=== PATIENT | female | born 1965 | race Caucasian/White ===

== ENCOUNTER 2017-07-24 18:52 | Emergency (ER) | payer MEDICAID ==
[2014-08-22 06:22] VITALS: BMI 34.4
[~2017-07-24 18:52] MED LIST: ASPIRIN EC81 MG PO; GABAPENTIN100 MG; ISORDIL5 MG PO
== END 2017-07-24 20:35 | disposition home or self-care (01) ==
LOC: D.ER 18:52
DX: S93.402A Sprain of unspecified ligament of left ankle, initial encounter (principal); X58.XXXA Exposure to other specified factors, initial encounter; Y93.89 Activity, other specified; Y92.89 Other specified places as the place of occurrence of the external cause; S83.92XA Sprain of unspecified site of left knee, initial encounter; F17.200 Nicotine dependence, unspecified, uncomplicated

== ENCOUNTER 2020-01-19 12:24 | Inpatient (IN) | payer MEDICAID ==
[~2020-01-19] VITALS: Ht 154.9 cm; Wt 77.6 kg
[2020-01-19] VITALS (12 sets, daily range): BP systolic 93–142; BP diastolic 58–85; BMI 31.2
[2020-01-19] MEDS ORDERED: ASPIRIN81 MG PO (13:06)
[2020-01-19] MEDS ORDERED: ACEROLA C500 MG PO (13:06)
[2020-01-19] MEDS ORDERED: ACIDOPHILUS-PE1 EACH PO (13:06)
[2020-01-19] MEDS ORDERED: ACEROLA C500 MG (13:06)
[2020-01-19] MEDS ORDERED: BENTYL10 MG PO (13:07)
[2020-01-19] MEDS ORDERED: FLORINEF 0.1 M0.1 MG PO (13:07)
[2020-01-19] MEDS ORDERED: VALIUM5 MG PO (13:07)
[2020-01-19] MEDS ORDERED: MULTI-DAY VITAM1 TAB PO (13:08)
[2020-01-19] MEDS ORDERED: METAMUCIL PACKE1 PKT PO (13:08)
[2020-01-19] MEDS ORDERED: NOVOLOG100 UNIT/1 SC (13:09)
[2020-01-19] MEDS ORDERED: PROTONIX40 MG PO (13:10)
[2020-01-19] MEDS ORDERED: PERCOCET 7.5/321 TAB PO (13:12)
[2020-01-19] MEDS ORDERED: ULTRAM50 MG PO (13:12)
[2020-01-19] MEDS ORDERED: PHENAZOPYRIDIN100 MG PO (13:12)
[2020-01-19] MEDS ORDERED: ZINC-220220 MG PO (13:13)
[2020-01-19] MEDS ORDERED: ZOFRAN4 MG PO (13:13)
[2020-01-19 13:18] LABS: BASOPHILS 0.3 % (0-2); EOSINOPHILS 7.1 % (0-7); HEMATOCRIT 35.4 % (36.0-48.0); IMMATURE GRANULOCYTES 0.3 % (0-5); LYMPHOCYTES 30.7 % (15-50); MCH 28.9 pg (26.0-34.0); MCHC 31.1 g/dL (31.0-37.0); MCV 93.2 fL (80.0-100.0); MEAN PLATELET VOLUME 10.2 fL (7.4-10.4); MONOCYTES 7.3 % (2-11); NEUTROPHILS 54.3 % (40-80); RDW 17.5 % (11.5-14.5); WBC 10.3 10x3/uL (4.8-10.8)
[2020-01-19 13:23] LABS: PLATELET COUNT 361 10x3/uL (130-400)
[2020-01-19 13:38] LABS: APTT 24.7 SECONDS (22.8-39.4); INR 1.04 (0.85-1.17); PROTIME 13.5 SECONDS (11.6-15.0)
[2020-01-19 13:42] LABS: CALC OSMOLALITY 270 mosm/kg (275-300); CALCIUM 9.3 mg/dL (8.5-10.1); CHLORIDE - SERUM 101 mmol/L (98-107); CREATININE - SERUM 0.9 mg/dL (0.6-1.3); GLUCOSE 137 mg/dL (74-106); POTASSIUM - SERUM 4.3 mmol/L (3.5-5.1); SODIUM 133 mmol/L (136-145); UREA NITROGEN 20 mg/dL (7-18); eGFR NON AFRICAN AMERICAN 69 mL/min (90-120)
[2020-01-19 13:58] LABS: ALBUMIN 2.4 g/dL (3.4-5.0); ALKALINE PHOSPHATASE 143 U/L (30-120); ALT (SGPT) 53 U/L (10-68); BILIRUBIN - TOTAL 0.12 mg/dL (0.2-1.3); CKMB 0.7 U/L (0.0-3.6); CREATINE KINASE 19 UL (21-215); PROTEIN - SERUM 6.7 g/dL (6.4-8.2); TROPONIN-I < 0.017 ng/mL (0.000-0.060)
--- NOTE | 2020-01-19 14:00 | NUR ---
GUAIC STOOL NEGATIVE: HARESH MARTINEZ NOTIFIED
--- NOTE | 2020-01-19 14:08 | NUR ---
CRITICAL LAB LACTIC ACID 2.2. NOTIFIED
--- NOTE | 2020-01-19 14:25 | NUR ---
TO CT VIA STRETCHER WITH ARMY MANAGER
[2020-01-19 15:32] LABS: BILIRUBIN NEGATIVE (NEGATIVE); GLUCOSE NEGATIVE (NEGATIVE); KETONE NEGATIVE (NEGATIVE); NITRITE NEGATIVE (NEGATIVE); UROBILINOGEN NORMAL (NORMAL)
[2020-01-19 15:36] LABS: BACTERIA FEW /hpf (NEGATIVE); EPITHELIAL CELLS 0-5 /hpf (0-5); RED CELLS - URINE 0-5 /hpf (0-5)
--- NOTE | 2020-01-19 16:00 | NUR ---
#1 WOUND: SACRUM= 5X2 #2 WOUND: SACRUM= 5X2 #3 WOUND ABOVE UMBILICUS= 4X0.5 #4 WOUND BELOW UMBILICUS= 1X1 #5 WOUND STERNUM= 11 X 1.5 CM ALL WOUNDS CLEANSED WITH WOUND CLEANSER AND DRY DRSGS APPLIED. PT CHELSI WELL
--- NOTE | 2020-01-19 16:30 | NUR ---
VANCOMYCIN 1 GM COMPLETED ON 01/19/20 @ 2961
--- NOTE | 2020-01-19 17:10 | NUR ---
REPRT TO [facility]
--- NOTE | 2020-01-19 17:30 | NUR ---
TO ICU VIA STRETCHER WITH ISO PRECAUTIONS IN PLACE, CONDITION STBLE
--- NOTE | 2020-01-19 18:06 | NUR ---
REC'D PT TO ICU ISILATION ROOM AND PLACED ON AIRBORNE PRECAUTIONS/COVID-19. ALL MONITORING EQUIPMENT ATTACHED AND ALARMS SET. DINNER TRAY PROVIDED. VSS, AFEBRILE. PT IS EATING DINNER TRAY. SHE STATES "AM VERY HUNGRY".
--- NOTE | 2020-01-19 19:00 | NUR ---
REPORT RECEIVED. INITIAL ASSESSMENT COMPLETE. ZHANNA GERMAIN ALSO HERE TO ASSESS PT. PT UNDER AIRBORN ISOLATION FOR SUSPECTED [place] TROY VIRUS. PT ALERT ORIENTED ON ROOM AIR CHEST CLEAR O2 SAT 94-97%. PT HAS DRESSING TO COCCYX STAGE IV DRESSING CDI. PT TURNS INDEPENDENTLY AND ABLE TO PULL SELF UP IN BED. ENCOURAGED TO TCDB AND REPOSITION OFTEN. PT STATES MORPHINE THAT WAS GIVEN THIS PER DAY SHIFT HELPING. SEE ASSESSMENT FLOWSHEET FOR FULL DETAILS.
--- NOTE | 2020-01-19 21:00 | NUR ---
ANSWERED PTS CALL LIGHT SHE IS REQUESTING PAIN MED INFORMED TOO EARLY REPOSITIONED AND ASSISTED WITH CLEANING ILEOSTOMY SITE.
--- NOTE | 2020-01-19 23:00 | NUR ---
REASSESSMENT SEE FLOWSHEETS VSS WILL CONTINUE TO MONITOR
[2020-01-20] VITALS (21 sets, daily range): BP systolic 89–132; BP diastolic 51–81; Ht 154.9 cm; Wt 77.6 kg
--- NOTE | 2020-01-20 00:50 | NUR ---
PT MEDICATED PER PRN MAR FOR PAIN AT ILEOSTOMY SITE EXCORIATION. SEE EMAR. ASSISTED PT WITH CLEANING ILEOSTOMY SITE
--- NOTE | 2020-01-20 03:00 | NUR ---
REASSESSMENT COMPLETE. PT ASSISTED WITH BED TRAVIS TO URINATE CLEAR YELLOW URINE DRESSING CHANGED TO COCCYX WITH WET TO DRY GAUZE. CL IN REACH VSS WILL CONTINUE TO MONITOR.
[2020-01-20 04:26] LABS: % SATURATION 21 % (15-55); IRON 32 ug/dl (35-150); TOTAL IRON BIND CAPACITY 152 ug/dl (260-445); UNSAT IRON BIND CAPACITY 120 ug/dl (150-375)
[2020-01-20 05:00] LABS: ALKALINE PHOSPHATASE 99 U/L (30-120); BILIRUBIN - TOTAL 0.12 mg/dL (0.2-1.3); CALCIUM 7.8 mg/dL (8.5-10.1); CARBON DIOXIDE 20.9 mmol/L (21.0-32.0); CHLORIDE - SERUM 107 mmol/L (98-107); CREATININE - SERUM 0.8 mg/dL (0.6-1.3); FERRITIN 291 ng/mL (3-244); GLUCOSE 90 mg/dL (74-106); PHOSPHOROUS 3.8 mg/dL (2.5-4.9); PROTEIN - SERUM 5.5 g/dL (6.4-8.2); SODIUM 137 mmol/L (136-145); eGFR NON AFRICAN AMERICAN 79 mL/min (90-120)
[2020-01-20 05:01] LABS: ALBUMIN 1.7 g/dL (3.4-5.0); ALT (SGPT) 27 U/L (10-68); CALC OSMOLALITY 274 mosm/kg (275-300); POTASSIUM - SERUM 3.6 mmol/L (3.5-5.1); UREA NITROGEN 14 mg/dL (7-18)
[2020-01-20 06:09] LABS: BASOPHILS 0.3 % (0-2); EOSINOPHILS 7.7 % (0-7); IMMATURE GRANULOCYTES 0.1 % (0-5); LYMPHOCYTES 35.5 % (15-50); MCH 28.9 pg (26.0-34.0); MCV 93.2 fL (80.0-100.0); MONOCYTES 9.8 % (2-11); NEUTROPHILS 46.6 % (40-80); RBC 3.11 10x6/uL (4.00-5.40); RDW 17.7 % (11.5-14.5)
[2020-01-20 06:31] LABS: PLATELET COUNT 283 10x3/uL (130-400)
--- NOTE | 2020-01-20 06:31 | NUR ---
LAB REDREW CBC SPECIMEN WAS CLOTTED. REORDERED AM DRAW TO VERIFY RESULTS
--- NOTE | 2020-01-20 06:56 | NUR ---
PT C/O PAIN EXCORIATION AROUND ILEOSTOMY MEDICATED PER PRN ORDERS SEE EMAR
[2020-01-20 07:13] LABS: ALBUMIN 1.8 g/dL (3.4-5.0); ALKALINE PHOSPHATASE 93 U/L (30-120); CALC OSMOLALITY 277 mosm/kg (275-300); CALCIUM 8.1 mg/dL (8.5-10.1); CARBON DIOXIDE 22.1 mmol/L (21.0-32.0); CHLORIDE - SERUM 108 mmol/L (98-107); CREATININE - SERUM 0.8 mg/dL (0.6-1.3); GLUCOSE 90 mg/dL (74-106); MAGNESIUM - SERUM 1.1 mg/dL (1.8-2.4); POTASSIUM - SERUM 3.7 mmol/L (3.5-5.1); PROTEIN - SERUM 5.1 g/dL (6.4-8.2); SODIUM 139 mmol/L (136-145); UREA NITROGEN 13 mg/dL (7-18); eGFR NON AFRICAN AMERICAN 79 mL/min (90-120)
[2020-01-20 07:17] LABS: ALT (SGPT) 34 U/L (10-68); BILIRUBIN - TOTAL 0.09 mg/dL (0.2-1.3)
--- NOTE | 2020-01-20 10:22 | NUR ---
BREAKFAST TRAY PROVIDED AND PT FEEDS SELF WITH OUT DIFFICULTY. ASSISTED WITH BED TRAVIS AND PT VOIDS CL YELLOW URINE. BANDAGE TO STAGE 4 COCCYX CHANGED. DSNG TO ABD CHANGED. EXCORATION TO SURROUNDING STOMA APPLIED BEAUDREAUS PASTE ORDERED. EXCORATION APPEARS SLIGHTLY LESS TODAY.
--- NOTE | 2020-01-20 19:13 | NUR ---
RECEIVING REPORT REVIEWING ORDERS CT OF CHEST WITHOUT CONTRAST ORDERED PER DR LOPES AT 1230 NOT COMPLETED. CALLED RADIOLOGY THEY ARE AWARE OF ORDER AND THAT PT IS UNDER AIRBORN ISOLATION FOR SUSPECTED TROY VIRUS. RADIOLOGY TO CALL WHEN THEY ARE READY FOR PATIENT. INQUIRED FROM DAY AND COUTURE DRESSMAKER CHARGE NURSES TO PROCEDURE FOR TRANSPORTING TO RADIOLOGY WITH THE TROY VIRUS.
--- NOTE | 2020-01-20 19:35 | NUR ---
REPORT RECEIVED. ANSWERED CALL LIGHT PT CRYING STATING ABD HURTING AROUND ILEOSTOMY SKIN EXCORIATED ALL AROUND STOMA. "SOME DR WAS SUPPOSED TO COME THIS MORNING AND PUT A TUBE IN TO KEEP FROM HAVING TO KEEP WIPING FROM POOP BUT I HAVE NOT SEEN HIM AND NOBODY HAS TOLD BE WHEN HE IS COMING" "MARC BEEN HURTING MOST OF DAY AT 10 ON 1-10 SCALE STATES "MY BUTT IS KILLING ME IM SUPPOSED TO BE GETTING AN AIR MATTRESS ASKING WHEN MATTRESS WILL BE HERE PT STATES "I CANT HANDLE ANYMORE". INFORMED PT THE OVERLAY MATTRESS WAS HERE WOULD GET PLACED SOON ABLE. PT HAS CT CHEST ORDERED THAT HAS NOT BEEN DONE YET CHECKING WITH INFECTION CONTROL ON POLICY WITH TRANSPORTING SINCE PT SUSPECTED TROY VIRUS. WOULD BE EASIER ON PT TO APPLY OVERLAY WHILE PT IN CT PT VERBALIZES UNDERSTANDING. MEDICATED WITH MORPHINE PER PRN EMAR. INITIAL ASSESSMENT COMPLETE SEE FLOWSHEET. CM READING SR WITHOUT ECTOPY ALARMS ON AND AUDIBLE. RESP EVEN NONLABORED ON ROOM AIR WITH O2 SAT 94-96%. PT DENIES SOB ENCOUARAGED PT TO TCDB. PT MOVES INDEPENDENTLY TURNS AND REPOSITIONS AND ABLE TO MOVE SELF UP IN BED WITHOUT ASSIST JUST REMINDED TO KEEP PRESSURE OFF COCCYX SHE VERBALIZES UNDERSTANDING. BED LOW POSITION CL IN REACH WILL SEE EMAR FOR PAIN REASSESSMENT.
--- NOTE | 2020-01-20 19:50 | NUR ---
MARIUSZ CHARGE NURSE SPOKE TO [facility] INFECTION CONTROL NURSE ABOUT TRANSPORT FOR TROY/ISOLATION PATIENTS. INFORMED TO PLACE REGULAR SURGICAL MASK ON PT AND ISOLATION GOWN, CLEAR HALLWAYS DIRECT STAFF TO DON AIRBORNE PPE. .
--- NOTE | 2020-01-20 21:30 | NUR ---
CHARGE NURSE SPOKE WITH DR LOPES FOR ORDERS FOR STERNAL WOUND DRESSING. ORDER WAS PLACED TODAY FOR WOUND CARE CONSULT AND WOUND VAC PLACEMENT TO STERNUM. URI BALDERAS WOUND CARE NURSE TO SEE PT WEDNESDAY AND INITIATE THE STERNAL WOUND VAC. DR LOPES STATED HE WAS AWARE THAT WOUND CONSULT AND VAC PLACEMENT WOULD BE DONE WEDNESDAY HAD GIVEN ORDER FOR DRY DRESSING TO BE CHANGED BID UNTIL WOUND VAC PLACED BY WOUND CARE NURSE.
--- NOTE | 2020-01-20 22:00 | NUR ---
CULTURE SWABS OF STERNUM SENT TO LAB PER ORDERED BY MARIANNE. STERNAL WOUND BED PINK CLEAN WITH MINIMAL SEROSANGUINOUS DRAINAGE NO ODOR OR REDNESS NOTED. [id number] APPROXIMATE DEPTH 0.3 CM. STERILE DRESSING CHANGE CLEANED WITH NS COVERED WITH DRY GAUZE AND SECURED WITH MEPORE TAPE. PT TOLERATED WELL
--- NOTE | 2020-01-20 22:15 | NUR ---
PT UP TO W/C WITH ASSIST MASK AND GOWN TO CT. FIRST STEP OVERLAY PLACED ON BED WHILE PT IN CT
--- NOTE | 2020-01-20 22:30 | NUR ---
PT BACK FROM CT ASSISTED TO BED WITH FIRST STEP OVERLAY TOLERATED CT WELL
[2020-01-21] VITALS (24 sets, daily range): BP systolic 94–150; BP diastolic 46–100
--- NOTE | 2020-01-21 01:30 | NUR ---
ANSWERED PTS CALL LIGHT ASSISTED TO BED TRAVIS SHE ALSO ASKED IF SHE COULD HAVE PAIN MEDICATION YET. INFORMED WOULD CHECK
--- NOTE | 2020-01-21 02:00 | NUR ---
ANSWERED PTS CALL LIGHT RIGHT WRIST 22 GUAGE PAINFUL D/C CATH INTACT 20 GUAGE PIV RESTARTED TO RIGHT FOREARM PLACED.
--- NOTE | 2020-01-21 03:00 | NUR ---
REASSESSMENT VSS CPOC PT DENIES NEEDS AT THIS TIME. STATES THE AIR MATTRESS HAS HELPED WITH THE PAIN FROM PRESSURE WOUND
--- NOTE | 2020-01-21 04:00 | NUR ---
A BEATRIZ CHARGE NURSE ANSWERED PT CALL LIGHT ASSISTED PT WITH CLEANING LARGE LIQUID BROWN STOOL FROM ILEOSTOMY PT ALSO REQUESTING BED TRAVIS MODERATE AMOUNT OF CLEAR YELLOW URINE.
--- NOTE | 2020-01-21 04:48 | NUR ---
LAST MAG REPLACEMENT OF ELECTROLYTE PROTOCOL GIVEN. PER PROTOCOL REDRAW 4 HOURS. DUE TO PT BEING A STICK REQUESTED AM LABS BE DRAWN AT 0800 JOAN IN LAB NOTIFIED
--- NOTE | 2020-01-21 05:32 | NUR ---
UNABLE TO DRAW FROM TRIALYSIS INFORMED LAB PT WOULD NEED TO BE A STICK
[2020-01-21 09:02] LABS: BASOPHILS 0.3 % (0-2); EOSINOPHILS 7.6 % (0-7); HEMOGLOBIN 9.4 g/dL (12-16); IMMATURE GRANULOCYTES 0.3 % (0-5); MCH 29.2 pg (26.0-34.0); MCHC 31.3 g/dL (31.0-37.0); MCV 93.2 fL (80.0-100.0); MEAN PLATELET VOLUME 10.2 fL (7.4-10.4); MONOCYTES 9.6 % (2-11); NEUTROPHILS 46.2 % (40-80); PLATELET COUNT 294 10x3/uL (130-400); RBC 3.22 10x6/uL (4.00-5.40); RDW 17.6 % (11.5-14.5); WBC 6.7 10x3/uL (4.8-10.8)
[2020-01-21 09:22] LABS: ALBUMIN 1.8 g/dL (3.4-5.0); ANION GAP 13.7 mmol/L (8-16); BILIRUBIN - TOTAL 0.23 mg/dL (0.2-1.3); CALCIUM 8.3 mg/dL (8.5-10.1); CARBON DIOXIDE 22.5 mmol/L (21.0-32.0); PHOSPHOROUS 3.8 mg/dL (2.5-4.9); POTASSIUM - SERUM 3.2 mmol/L (3.5-5.1); PROTEIN - SERUM 5.8 g/dL (6.4-8.2)
[2020-01-21 09:23] LABS: CREATININE - SERUM 1.1 mg/dL (0.6-1.3)
--- NOTE | 2020-01-21 10:52 | NUR ---
SKIN SURROUNDING STOMA EXCORIATED. CLEANED AND DRESSED X3 THIS AM. PT C/O PAIN TO SKIN. MS GIVEN WITH ADEQUATE RELIEF.
--- NOTE | 2020-01-21 19:04 | NUR ---
DR NORTH PLACED A TUBE INTO THE STOMA AND PLACED TO GRAVITY DRAINAGE.
[2020-01-21 19:34] LABS: POTASSIUM - SERUM 3.3 mmol/L (3.5-5.1)
--- NOTE | 2020-01-21 19:50 | NUR ---
LAB HERE FOR MAG AND POTASSIUM RECHECK PER ELECTROLYTE PROTOCOL. WHILE THIS NURSE AND LAB IN ROOM COWORKER TOOK CALL FROM LAB REPORTING MAG LEVEL OF 1.0. ASKED HOW LAB HAD BEEN RESULTED WHEN SHE HAD NOT DRAWN YET GIFT OFFICER STATED SHE WOULD CHECK WHEN SHE GOT BACK TO LAB.
--- NOTE | 2020-01-21 23:15 | NUR ---
ANSWERED PTS CALL LIGHT SHE IS CRYING VERY TEARFUL BECAUSE THE TUBE DR NORTH HAD PUT IN ILEOSTOMY HAD COME OUT. ASSISTED PT WITH GETTING SITE CLEANED DRESSED AND COVERED WITH GAUZE AND ABD PADS AND INFORMED PT NOT TO KEEP WIPING WITH GAUZE WHICH KEEPS AREA IRRITATED. ILEOSTOMY WITH CONSTANT LIQUID BROWN STOOL INFORMED DUE TO THE SITE BEING ILEOSTOMY AND WITH THE EXCORIATED SKIN AROUND CONSTANTLY TRYING TO WIPE IS CAUSING MORE IRRITATION. APPLIED JOAN BUTT PASTE TO SKIN AROUND STOMA. AND COVERED INFORMED WILL MONITOR IT AND CLEAN DRESS NEEDED. PT ALSO IN PAIN 10 ON 1-10 SCALE MEDICATED WITH MORPHINE PER ORDERS. WILL CONTINUE TO MONITOR
[2020-01-22] VITALS (25 sets, daily range): BP systolic 74–138; BP diastolic 44–85
--- NOTE | 2020-01-22 00:15 | NUR ---
WENT TO LAB SPOKE WITH RAOUL UNABLE TO SEE MAG AND POT RESULTS FROM 1999. SHE LOOKED ON LAB SIDE OF COMPUTER AND STATED THE RESULT WHICH HAD BEEN CALLED AT 1938 TO ICU AND REPORTED BUT THE DISTRICT GAUGER HAD NOT EVEN DRAWN THE BLOOD YET AND WAS ACTUALLY IN ROOM FOR DRAW. SHE STATED SHE DID NOT KNOW THIS WAS DONE BEFORE HER SHIFT INFORMED HAD TO BE REDRAWN SINCE NOT CLEAR WHAT HAD HAPPENED.
--- NOTE | 2020-01-22 00:40 | NUR ---
ANSWERED PTS CALL LIGHT SHE STATES THE ILEOSTOMY SITE IS LEAKING. SHE CAN FEEL IT LEAKING ALL DOWN HER BACK. INFORMED THAT DRESSING WAS CLEAN NO STOOL NOTED AND REITERATED THAT ONLY IRRITATING MAKING WORSE BY CONTINUING TO CONSTANTLY WIPE.
--- NOTE | 2020-01-22 01:12 | NUR ---
AVTAR FROM LAB HERE ON UNIT ASKED IF SHE WAS HERE TO DRAW THIS PT LAB SHE WAS NOT BUT DID DRAW SINCE UNABLE TO VERIFY RESULTS
[2020-01-22 01:46] LABS: POTASSIUM - SERUM 3.6 mmol/L (3.5-5.1)
--- NOTE | 2020-01-22 02:00 | NUR ---
MAG REPORTING 1.0 FOLLOWING ELECTROLYTE PROTOCOL PT CONTINUES TO BE TEARFUL MEDICATED WITH VALIUM PER PRN ORDER FOR ANXIETY WILL MONITOR VSS CPOC
--- NOTE | 2020-01-22 03:00 | NUR ---
REASSESSMENT COMPLETE NO CHANGES CPOC
[2020-01-22 04:14] LABS: BASOPHILS 0.1 % (0-2); EOSINOPHILS 7.9 % (0-7); HEMATOCRIT 28.7 % (36.0-48.0); IMMATURE GRANULOCYTES 0.4 % (0-5); LYMPHOCYTES 37.9 % (15-50); MCH 29.2 pg (26.0-34.0); MCHC 31.4 g/dL (31.0-37.0); MCV 93.2 fL (80.0-100.0); MEAN PLATELET VOLUME 10.3 fL (7.4-10.4); MONOCYTES 9.4 % (2-11); NEUTROPHILS 44.3 % (40-80); PLATELET COUNT 245 10x3/uL (130-400); RBC 3.08 10x6/uL (4.00-5.40); RDW 17.6 % (11.5-14.5); WBC 6.8 10x3/uL (4.8-10.8)
[2020-01-22 04:34] LABS: ALBUMIN 1.6 g/dL (3.4-5.0); ANION GAP 8.6 mmol/L (8-16); BILIRUBIN - TOTAL 0.2 mg/dL (0.2-1.3); CALCIUM 7.7 mg/dL (8.5-10.1); CREATININE - SERUM 0.9 mg/dL (0.6-1.3); POTASSIUM - SERUM 3.6 mmol/L (3.5-5.1); PROTEIN - SERUM 5.1 g/dL (6.4-8.2)
[2020-01-22 04:35] LABS: MAGNESIUM - SERUM 0.9 mg/dL (1.8-2.4); PHOSPHOROUS 2.6 mg/dL (2.5-4.9)
--- NOTE | 2020-01-22 06:00 | NUR ---
CLEANED ILEOSTOMY SITE MODERATE AMOUNT OF STOOL. APPLIED JOAN BUTT PASTE TO EXCORIATION REAPPLIED GAUZE AND ABD PADS SECURED WITH TAPE. PT STATED AFTER THE ANXIETY MEDICATION SHE WAS ABLE TO REST AND FEELS BETTER.
--- NOTE | 2020-01-22 07:00 | NUR ---
PT REPORT RECEIVED FROM GRANULATING BLENDER NURSE. PT IN AIRBORN ISOLATION. WILL CONTINUE TO MONITOR
--- NOTE | 2020-01-22 11:06 | NUR ---
Nutrition follow-up: Pt in isolation for possible Covid-19 exposure; testing in progress Diet: ADA consistent CHO PO Intake 100% of lasst 3 meals Pt refusing nutritional supplements at this time Labs reviewed Recommend Alex nutritional supplement, 1 pkt, BID mixed in juice to aid with wound healing. RDN following.
--- NOTE | 2020-01-22 11:52 | NUR ---
PT ADMITTED ON 01/19/20 FROM [place]. IT IS NOTED THAT SHE HAD NUMEROUS OPEN WOUNDS UPON ADMISSION. MIDLINE STERNUM HAS A NONHEALING SURGICAL WOUND. IT MEASURES 11CM X 2CM X 0.3CM. WOUND BED IS RED. THERE IS A BLOODY DRAINAGE WITH NO ODOR. A WOUND VAC DRESSING WAS APPLIED USING 1 BLACK SPONGE. SETTINGS ARE AT -125MMHG LOW CONTINUOUS. PERIUMBILICAL HAS 2 OPEN WOUNDS: #1 MEASURES 1CM X 1CM #2 3CM X 1CM BOTH WOUNDS WERE CLEANSED WITH WOUND VACUUM FRAME OPERATOR AND COVERED WTIH GAUZE. PT HAS AN ILEOSTOMY RIGHT LOWER ABD QUAD. THE SURROUNDING SKIN IS RED, RAW AND IRRITATED. PT STATES SHE CANNOT USE STOMA POWDER OR PASTE, SO ZINC OXIDE PASTE IS BEING APPLIED. PT STATES SHE CANNOT USE AN OSTOMY APPLIANCE DUE TO EXCORIATED SKIN. AREA WAS CLEANSED, DRIED, COVERED WITH ADAPTIC, 4X4S AND ABD PADS. SACRUM: 4CM X 4CM X 0.5CM HEALING STAGE 3 PRESSURE INJURY. WOUND BED IS RED. LEFT BUTTOCK: 3CM X 3CM X 1.5CM X 1.5CM FROM 12 TO 12 OCLOCK STAGE 3 PRESSURE INJURY. BOTH OF THESE WOUNDS WERE CLEANSED AND LOOSELY PACKED WITH GAUZE MOISTENED WITH SALINE. COVERED WITH DRY 4X4S AND ABD PADS. WOUND CARE WILL CONTINUE MONITORING.
[2020-01-23] VITALS (20 sets, daily range): BP systolic 90–135; BP diastolic 52–72
[2020-01-23 05:16] LABS: BASOPHILS 0.3 % (0-2); EOSINOPHILS 6.8 % (0-7); HEMATOCRIT 28.4 % (36.0-48.0); HEMOGLOBIN 8.6 g/dL (12-16); IMMATURE GRANULOCYTES 0.3 % (0-5); LYMPHOCYTES 33.3 % (15-50); MCH 28.8 pg (26.0-34.0); MCHC 30.3 g/dL (31.0-37.0); MEAN PLATELET VOLUME 10.4 fL (7.4-10.4); MONOCYTES 7.7 % (2-11); NEUTROPHILS 51.6 % (40-80); PLATELET COUNT 287 10x3/uL (130-400); RBC 2.99 10x6/uL (4.00-5.40); RDW 17.8 % (11.5-14.5); WBC 7.2 10x3/uL (4.8-10.8)
[2020-01-23 06:28] LABS: ALBUMIN 1.6 g/dL (3.4-5.0); ALKALINE PHOSPHATASE 98 U/L (30-120); ALT (SGPT) 32 U/L (10-68); BILIRUBIN - TOTAL 0.14 mg/dL (0.2-1.3); CALC OSMOLALITY 279 mosm/kg (275-300); CALCIUM 7.8 mg/dL (8.5-10.1); CARBON DIOXIDE 26.6 mmol/L (21.0-32.0); CHLORIDE - SERUM 109 mmol/L (98-107); CREATININE - SERUM 0.7 mg/dL (0.6-1.3); GLUCOSE 106 mg/dL (74-106); MAGNESIUM - SERUM 1.8 mg/dL (1.8-2.4); PHOSPHOROUS 2.1 mg/dL (2.5-4.9); POTASSIUM - SERUM 3.7 mmol/L (3.5-5.1); PROTEIN - SERUM 5.2 g/dL (6.4-8.2); SODIUM 141 mmol/L (136-145); UREA NITROGEN 9 mg/dL (7-18); eGFR NON AFRICAN AMERICAN > 90 mL/min (90-120)
--- NOTE | 2020-01-23 07:00 | NUR ---
PT RESTING IN BED. NO ACUTE SIGNS OF DISTRESS. SHIFT ASSESSMENT COMPLETED. WILL CONTINUE TO MONITOR
--- NOTE | 2020-01-23 10:40 | NUR ---
DR TOVAR IN ROOM. UPDATE GIVEN. WANTS TO PERFORM COVID 19 TEST. WILL CONTINUE TO MONITOR
--- NOTE | 2020-01-23 12:00 | NUR ---
DR GUY NIEVES. TRANSFER ORDER RECEIVED. PT WILL BE TRANSFERRING TO [facility].
--- NOTE | 2020-01-23 14:35 | NUR ---
COVID 19 TEST PERFORMED ON PT. SWABBED NOSE. SAMPLE TAKEN TO LAB.
--- NOTE | 2020-01-23 18:24 | NUR ---
CALLED REPORT TO MED TWO. REPORT GIVEN TO
--- NOTE | 2020-01-23 18:30 | NUR ---
TRIED CALLING REPORT TO MED 2. LEFT ON HOLD. HUNG UP WILL TRY AGAIN
--- NOTE | 2020-01-23 20:54 | MORECARE ---
CASE MANAGEMENT DISCHARGE SUMMARY PATIENT: BERNICE GUNN UNIT: [id number] ADM DATE: 01/19/20 AGE: 55 : 67 SEX: F ROOM/BED: D.2134 AUTHOR: DIANA KOO PHYSICIAN: REFERRING PHYSICIAN: LEONA ZHU MD DATE OF SERVICE: 01/23/20 Discharge Plan Patient Name: BERNICE GUNN [facility] [facility] 1965 Planned Disposition: Nursing Facility RAGHAV Cert Anticipated Discharge Date: Discharge Date: Expected LOS: Initial Reviewer: [email or web address] Initial Review Date: 01/19/2020 Generated: 01/23/20 9:53 pm Patient Name: BERNICE GUNN Page [phone] at 2053 All edits/amendments must be made on the electronic document DICTATION DATE: 01/23/202052 SENIOR SAS PROGRAMMER: EMMA 01/23/202052 RPT#: [id number] DC DATE: STATUS: ADM IN [facility] [address] [place] [address] END OF REPORT
--- NOTE | 2020-01-23 21:00 | MORECARE ---
CASE MANAGEMENT DISCHARGE SUMMARY PATIENT: BERNICE GUNN UNIT: [id number] ADM DATE: 01/19/20 AGE: 55 : 67 SEX: F ROOM/BED: D.2134 AUTHOR: DIANA KOO PHYSICIAN: REFERRING PHYSICIAN: LEONA ZHU MD DATE OF SERVICE: 01/23/20 Discharge Plan Patient Name: BERNICE GUNN [facility] [facility] 1965 Planned Disposition: Nursing Facility RAGHAV Cert Anticipated Discharge Date: Discharge Date: Expected LOS: Initial Reviewer: [email or web address] Initial Review Date: 01/19/2020 Generated: 01/23/20 10:00 pm DCPIA - Discharge Planning Initial Assessment Updated by [email or web address]: Joann Arora on 01/23/20 8:58 pm * Is the patient Alert and Oriented? Yes * PCP Jerome * Preadmission Environment [facility] * Facility Name [facility] * ADLs Partial Dependent * Partial ADLs (Assistance needed) Ambulation Bathing Dressing Eating Medication Management Toileting Transfers * List name and contact numbers for known caregivers / representatives who currently or will assist patient after discharge: [facility]UEL CORBIN - [facility] - [phone] * Verbal permission to speak to the caregivers and representatives has been obtained from the patient. N/A * Additional services required to return to the preadmission environment? No * Can the patient safely return to the preadmission environment? Yes * Has this patient been hospitalized within the prior 30 days at any hospital? No Last DP export: 01/23/20 7:54 p Patient Name: BERNICE GUNN Page [id number] at 2100 All edits/amendments must be made on the electronic document DICTATION DATE: 01/23/202099 VOLUNTEER SERVICES DIRECTOR: EMMA 01/23/202099 RPT#: [id number] DC DATE: STATUS: ADM IN [facility] [address] [place] [address] END OF REPORT
--- NOTE | 2020-01-23 21:07 | MORECARE ---
CASE MANAGEMENT DISCHARGE SUMMARY PATIENT: BERNICE GUNN UNIT: [id number] ADM DATE: 01/19/20 AGE: 55 : 67 SEX: F ROOM/BED: D.9644 AUTHOR: HAYES,DOC PHYSICIAN: REFERRING PHYSICIAN: LEONA ZHU MD DATE OF SERVICE: 01/23/20 Discharge Plan Patient Name: BERNICE GUNN Facility: [facility]:[place] : 1965 Planned Disposition: Nursing Facility RAGHAV Cert Anticipated Discharge Date: Discharge Date: Expected LOS: Initial Reviewer: [email or web address] Initial Review Date: 01/19/2020 Generated: 01/23/20 10:06 pm Comments DCP- Discharge Planning Updated by [email or web address]: Joann Arora on 01/23/20 8:[address] Patient Name: BERNICE GUNN Admission Status: ER Accout number: [id number] Admission Date: 01-19-2020 : 1965 Admission Diagnosis: Attending: LEONA ZHU Current LOS: 4 Anticipated DC Date: Planned Disposition: Nursing Facility RAGHAV Cert Primary Insurance: MEDICAID [place] Discharge Planning Comments: Patient is a current resident at [facility] [phone] after a long hospitalization post AMI. CM called and spoke with Mila at [facility] ([place], [place]) and they are planning on patient returning there upon discharge. CM will fax updates to [facility] ([place], [place]) closer to discharge. CM will continue to follow and assist as needed with discharge planning / needs. Cake Winder: Joann Arora DCPIA - Discharge Planning Initial Assessment Updated by [email or web address]: Joann Arora on 01/23/20 8:58 pm * Is the patient Alert and Oriented? Yes * PCP Jerome * Preadmission Environment [facility] * Facility Name [facility] * ADLs Partial Dependent * Partial ADLs (Assistance needed) Ambulation Bathing Dressing Eating Medication Management Toileting Transfers * List name and contact numbers for known caregivers / representatives who currently or will assist patient after discharge: MANUEL CORBIN - [facility] - [phone] * Verbal permission to speak to the caregivers and representatives has been obtained from the patient. N/A * Additional services required to return to the preadmission environment? No * Can the patient safely return to the preadmission environment? Yes * Has this patient been hospitalized within the prior 30 days at any hospital? No Last DP export: 01/23/20 8:00 p Patient Name: BERNICE GUNN Page 56599 at 2107 All edits/amendments must be made on the electronic document DICTATION DATE: 01/23/202105 CUTTER GAS: EMMA 01/23/202105 RPT#: [id number] DC DATE: STATUS: ADM IN [facility] [address] [place] [address] END OF REPORT
--- NOTE | 2020-01-23 21:19 | MORECARE ---
CASE MANAGEMENT DISCHARGE SUMMARY PATIENT: BERNICE GUNN UNIT: [id number] ADM DATE: 01/19/20 AGE: 55 : 67 SEX: F ROOM/BED: D.6604 AUTHOR: HAYES,DOC PHYSICIAN: REFERRING PHYSICIAN: LEONA ZHU MD DATE OF SERVICE: 01/23/20 Discharge Plan Patient Name: BERNICE GUNN Facility: [facility]:[place] : 1965 Planned Disposition: Nursing Facility RAGHAV Cert Anticipated Discharge Date: Discharge Date: Expected LOS: Initial Reviewer: [email or web address] Initial Review Date: 01/19/2020 Generated: 01/23/20 10:19 pm Comments DCP- Discharge Planning Updated by [email or web address]: Joann Arora on 01/23/20 8:[address] Patient Name: BERNICE GUNN Admission Status: ER Accout number: [id number] Admission Date: 01-19-2020 : 1965 Admission Diagnosis: Attending: LEONA ZHU Current LOS: 4 Anticipated DC Date: Planned Disposition: Nursing Facility RAGHAV Cert Primary Insurance: MEDICAID [place] Discharge Planning Comments: Patient is a current resident at [facility] [phone] after a long hospitalization post AMI. CM called and spoke with Mila at [facility] and they are planning on patient returning there upon discharge. CM will fax updates to [facility] closer to discharge. CM will continue to follow and assist as needed with discharge planning / needs. Director Call Center Sales: Joann Arora DCPIA - Discharge Planning Initial Assessment Updated by [email or web address]: Joann Arora on 01/23/20 8:58 pm * Is the patient Alert and Oriented? Yes * PCP Jerome * Pread[facility] Environment [facility] * Facility Name [facility] * ADLs Partial Dependent * Partial ADLs (Assistance needed) Ambulation Bathing Dressing Eating Medication Management Toileting Transfers * List name and contact numbers for known caregivers / representatives who currently or will assist patient after discharge: [facility]EL CORBIN - [facility] - [phone] * Verbal permission to speak to the caregivers and representatives has been obtained from the patient. N/A * Additional services required to return to the preadmission environment? No * Can the patient safely return to the preadmission environment? Yes * Has this patient been hospitalized within the prior 30 days at any hospital? No External Providers External Provider: [facility] Next Contact Date: Service Request Date: Service Type: Resolution: Reviewer: Comments: Last DP export: 01/23/20 8:07 p Patient Name: BERNICE GUNN Page [phone] at 211 All edits/amendments must be made on the electronic document DICTATION DATE: 01/23/202118 FIXED INCOME DIRECTOR: EMMA 01/23/202118 RPT#: [id number] DC DATE: STATUS: ADM IN [facility] [address] [place] [address] END OF REPORT
--- NOTE | 2020-01-23 23:18 | NUR ---
PAGED ZHANNA GERMAIN, INSURANCE APPLICATION INVESTIGATOR DUE TO PT PAIN LEVEL.
[2020-01-24 00:30] VITALS: BP 117/75
--- NOTE | 2020-01-24 04:24 | NUR ---
RECEIVED REPORT FROM OFFGOING NURSE. CALLED TO ROOM BY PT ASKING FOR OSTOMY DSG TO BE CHANGED. STATING THAT IT WAS STINGING. DSG CHANGE AND AREA SURROUNDING WOUND BRIGHT RED AND APPEARS TO HAVE SMALL RAISED AREAS IN IT. RED AREA COVERED WITH BUTT PASTE TO HELP PROTECT SKIN. DENIES ANY OTHER NEEDS.
[2020-01-24 06:15] LABS: BASOPHILS 0.3 % (0-2); EOSINOPHILS 10.7 % (0-7); HEMATOCRIT 30.5 % (36.0-48.0); HEMOGLOBIN 9.2 g/dL (12-16); IMMATURE GRANULOCYTES 0.3 % (0-5); LYMPHOCYTES 35.3 % (15-50); MCH 28.9 pg (26.0-34.0); MCHC 30.2 g/dL (31.0-37.0); MCV 95.9 fL (80.0-100.0); MEAN PLATELET VOLUME 10.3 fL (7.4-10.4); MONOCYTES 8.4 % (2-11); PLATELET COUNT 308 10x3/uL (130-400); RBC 3.18 10x6/uL (4.00-5.40); RDW 17.5 % (11.5-14.5); WBC 7.3 10x3/uL (4.8-10.8)
[2020-01-24 06:44] LABS: ALBUMIN 1.6 g/dL (3.4-5.0); ALKALINE PHOSPHATASE 106 U/L (30-120); ALT (SGPT) 34 U/L (10-68); BILIRUBIN - TOTAL 0.22 mg/dL (0.2-1.3); CALC OSMOLALITY 277 mosm/kg (275-300); CARBON DIOXIDE 27.3 mmol/L (21.0-32.0); CHLORIDE - SERUM 107 mmol/L (98-107); CREATININE - SERUM 0.6 mg/dL (0.6-1.3); GLUCOSE 90 mg/dL (74-106); MAGNESIUM - SERUM 1.6 mg/dL (1.8-2.4); PHOSPHOROUS 2.3 mg/dL (2.5-4.9); POTASSIUM - SERUM 3.3 mmol/L (3.5-5.1); PROTEIN - SERUM 5.5 g/dL (6.4-8.2); SODIUM 140 mmol/L (136-145); UREA NITROGEN 10 mg/dL (7-18); eGFR NON AFRICAN AMERICAN > 90 mL/min (90-120)
--- NOTE | 2020-01-24 12:49 | NUR ---
CHANGED PT'S DRESSINGS TO COCCYX AND ABD PER ORDERS. SKIN IS REDDENED AND IRRITATED AROUND STOMY SITE. PT EXPRESSES DISCOMFORT IN AREA. PT A/O X4. NO S/S OF DISTRESS. VSS. BED LOW CALL LIGHT WITHIN REACH. WILL CONTINUE TO MONITOR.
--- NOTE | 2020-01-24 15:30 | NUR ---
CHANGED PT'S ABD PADDING BANDAGE. CLEANED STOOL FROM WOUND AND REDRESSED. C/D/I. PT COMPLAINS OF SKIN BURNING AROUND STOMA SITE. AREA CLEANED . A/O X4. VSS. BED LOW CALL LIGHT WITHIN REACH. WILL CONTINUE TO MONITOR.
[2020-01-24] MEDS ORDERED: SMZ-TMP DS 800-1 TAB PO (15:42)
--- NOTE | 2020-01-24 15:45 | NUR ---
WOUND VAC DRESSING CHANGE DATE: 01/24/2020 WOUND LOCATION: midline sternum WOUND MEASUREMENTS: 10cm x 1.4cm x 0.1cm (improved) WOUND DESCRIPTION: red/beefy MUSCLE, TENDON, OR BONE EXPOSED? no DRAINAGE AMOUNT/DESCRIPTION: no ODOR? no TYPE OF SPONGE USED AND AMOUNT: black SETTINGS: -125mmhg low continuous TEACHING: home/nh dressing changes Pt tolerated well
--- NOTE | 2020-01-24 16:11 | MORECARE ---
CASE MANAGEMENT DISCHARGE SUMMARY PATIENT: BERNICE GUNN UNIT: [id number] ADM DATE: 01/19/20 AGE: 55 : 67 SEX: F ROOM/BED: D.1034 AUTHOR: HAYES,DOC PHYSICIAN: REFERRING PHYSICIAN: LEONA ZHU MD DATE OF SERVICE: 01/24/20 Discharge Plan Patient Name: BERNICE GUNN Facility: [facility]:[place] : 1965 Planned Disposition: Nursing Facility [facility] Cert Anticipated Discharge Date: 01/24/20 Discharge Date: Expected LOS: 5 Initial Reviewer: [id number] Initial Review Date: 01/19/2020 Generated: 01/24/20 5:11 pm Comments DCP- Discharge Planning Updated by [id number]: Joann Arora on 01/23/20 8:[address] Patient Name: BERNICE GUNN Admission Status: ER Accout number: [id number] Admission Date: 01-19-2020 : 1965 Admission Diagnosis: Attending: LEONA ZHU Current LOS: 4 Anticipated DC Date: Planned Disposition: Nursing Facility [facility] Cert Primary Insurance: [place]ID [place] Discharge Planning Comments: Patient is a current resident at [facility] [phone] after a long hospitalization post AMI. CM called and spoke with Mila at [facility] and they are planning on patient returning there upon discharge. CM will fax updates to [facility] closer to discharge. CM will continue to follow and assist as needed with discharge planning / needs. Wheel Inspector: Joann Arora DCPIA - Discharge Planning Initial Assessment Updated by [email or web address]: Joann Arora on 01/23/20 8:58 pm * Is the patient Alert and Oriented? 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 N/A * Additional services required to return to the preadmission environment? No * Can the patient safely return to the preadmission environment? Yes * Has this patient been hospitalized within the prior 30 days at any hospital? No Last DP export: 01/23/20 8:19 p Patient Name: BERNICE GUNN Page 19421 at 1611 All edits/amendments must be made on the electronic document DICTATION DATE: 01/24/20 161 BUCKLE SEWER MACHINE: DM 01/24/20 161 RPT#: [id number] DC DATE: STATUS: ADM IN [facility] [address] [place] [address] END OF REPORT
--- NOTE | 2020-01-24 16:15 | NUR ---
I have reviewed this patient and I concur with the Shift Assessment completed by the Licensed Practical Nurse today this shift.
--- NOTE | 2020-01-24 16:58 | MORECARE ---
CASE MANAGEMENT DISCHARGE SUMMARY PATIENT: BERNICE GUNN UNIT: [id number] ADM DATE: 01/19/20 AGE: 55 : 67 SEX: F ROOM/BED: D.1104 AUTHOR: HAYES,DOC PHYSICIAN: REFERRING PHYSICIAN: LEONA ZHU MD DATE OF SERVICE: 01/24/20 Discharge Plan Patient Name: BERNICE GUNN Facility: [facility]:[place] : 1965 Planned Disposition: Nursing Facility [facility] Cert Anticipated Discharge Date: 01/24/20 Discharge Date: Expected LOS: 5 Initial Reviewer: [id number] Initial Review Date: 01/19/2020 Generated: 01/24/20 5:57 pm Comments DCP- Discharge Planning Updated by [email or web address]: Landon Faye on 01/24/20 3:[address] Patient Name: BERNICE GUNN Encounter No: [id number] : 1965 Primary Insurance: MEDICAID [place] Anticipated DC Date: 01-24-2020 Planned Disposition: Nursing Facility [facility] Cert External Planned Provider: [facility] C[facility] MEDICAID BED DCP follow-up note: RECEIVED DISCHARGE ORDERS, CALLED [facility], , SPOKE TO LINEMARKER TAMIKO. THE PERSON THAT CM SPOKE TO YESTERDAY IS NOT IN, THEY CANNOT LOCATE THE UPDATE FAXED BY YESTERDAY. [facility] IS NOT ABLE TO OBTAIN WOUND VAC TODAY AND IT WILL BE TOMORROW BEFORE VAC IS RECEIVED. FAXED UPDATE AND DISCHARGE INFORMATION TO [facility] AT [phone]. CM WAITING ON [facility] TO OBTAIN WOUND VAC. WHEN [facility] VERIFIES THEY HAVE THE VAC AND WILL ACCEPT PT, NURSE REPORT TO BE CALLED TO [facility] AT [phone]. PT WILL TRANSPORT VIA AMBULANCE. PENELOPE Carmichael DCP- Discharge Planning Updated by [email or web address]: Joann Arora on 01/23/20 8:[address] Patient Name: BERNICE GUNN Admission Status: ER Accout number: [id number] Admission Date: 01-19-2020 : 1965 Admission Diagnosis: Attending: LEONA ZHU Current LOS: 4 Anticipated DC Date: Planned Disposition: [facility] Primary Insurance: MED[place]ID [place] Discharge Planning Comments: Patient is a current resident at [facility] [phone] after a long hospitalization post AMI. CM called and spoke with Mila at [facility] and they are planning on patient returning there upon discharge. CM will fax updates to [facility] closer to discharge. CM will continue to follow and assist as needed with discharge planning / needs. Splicer Helper: Joann Arora DCPIA - Discharge Planning Initial Assessment Updated by [email or web address]: Joann Arora on 01/23/20 8:58 pm * Is the patient Alert and Oriented? Yes * PCP Jerome * Preadmission Environment Custodial [facility] * [facility] * ADLs Partial Dependent * Partial ADLs (Assistance needed) Ambulation Bathing Dressing Eating Medication Management Toileting Transfers * List name and contact numbers for known caregivers / representatives who currently or will assist patient after discharge: MANUEL CORBIN - [facility] [phone] * Verbal permission to speak to the caregivers and representatives has been obtained from the patient. N/A * Additional services required to return to the preadmission environment? No * Can the patient safely return to the preadmission environment? Yes * Has this patient been hospitalized within the prior 30 days at any hospital? No Last DP export: 01/24/20 3:11 p Patient Name: BERNICE GUNN Page 97481 at 1658 All edits/amendments must be made on the electronic document DICTATION DATE: 01/24/201656 HIM SPECIALIST: EMMA 01/24/201656 RPT#: [id number] DC DATE: STATUS: ADM IN [facility] [address] [place] [address] END OF REPORT
--- NOTE | 2020-01-24 17:40 | NUR ---
PT RESTIING IN BED EATING DINNER. VSS. NO S/S OF DISTRESS AT THIS TIME. BED LOW CALL LIGHT WITHIN REACH. WILL CONTINUE TO MONITOR.
[2020-01-24 17:43] VITALS: BP 131/67
--- NOTE | 2020-01-24 18:05 | NUR ---
CHANGED PT'S ABDOMINAL DRESSING. NORMAL AMOUT OF BM FROM OPENING. SITE C/D/I. WILL CONTINUE TO MONITOR.
[2020-01-24 20:00] VITALS: BP 127/73
[2020-01-25] VITALS: BP 119/78
[2020-01-25 04:00] VITALS: BP 120/75
[2020-01-25 09:36] VITALS: BP 119/70
--- NOTE | 2020-01-25 09:37 | NUR ---
I have reviewed this patient and I concur with the Shift Assessment completed by the Licensed Practical Nurse today this shift.
[2020-01-25 11:50] VITALS: BP 119/68
--- NOTE | 2020-01-25 12:22 | NUR ---
PT RESTING IN BED, VSS. TRAY SET UP PROVIDED. FSBS OBTAINED. CALL LIGHT WITHIN REACH, WILL CONT TO FOLLOW POC
--- NOTE | 2020-01-25 13:11 | NUR ---
Nutrition Follow-up: Overall eating well. Noted possible d/c today. Diet: Diabetic Wt: 171# (01/22); 171# (01/21) Last BM: 01/23 per chart Labs reviewed Meds noted: Protonix, vitamin C, NS @ 75, Neutra-Phos, Zofran -Continue current diet as tolerated. -RD following.
--- NOTE | 2020-01-25 14:20 | NUR ---
PIV TO RIGHT ARM INFILITRATED, PIV REMOVED WITH CATHETER TIP INTACT, NOTIFIED EDWINA WELDON, NEW ORDER RECIEVED TO D/C IV ANTIBIOTICS AND IV PAIN MEDICATION, START BACTRIM, START OXYCODONE PRN. [facility] NOTIFIED MACHINERY RIGGER THAT THEY WILL NOT BE ABLE TO GET WOUND VAC TODAY. PT NOTIFIED. NO SIGNS OF DISTRESS NOTED, WILL CONT TO FOLLOW POC
--- NOTE | 2020-01-25 16:06 | MORECARE ---
CASE MANAGEMENT DISCHARGE SUMMARY PATIENT: BERNICE GUNN UNIT: [id number] ADM DATE: 01/19/20 AGE: 55 : 67 SEX: F ROOM/BED: D.5174 AUTHOR: HAYES,DOC PHYSICIAN: REFERRING PHYSICIAN: LEONA ZHU MD DATE OF SERVICE: 01/25/20 Discharge Plan Patient Name: BERNICE GUNN Facility: [facility]:[place] : 1965 Planned Disposition: Nursing Facility [facility] Cert Anticipated Discharge Date: 01/24/20 Discharge Date: Expected LOS: 5 Initial Reviewer: [id number] Initial Review Date: 01/19/2020 Generated: 01/25/20 5:06 pm Comments DCP- Discharge Planning Updated by [email or web address]: Landon Faye on 01/25/20 2:[address] Patient Name: BERNICE GUNN Encounter No: [id number] : 1965 Primary Insurance: MEDICAID [place] Anticipated DC Date: 01-24-2020 Planned Disposition: Nursing Facility [facility] Cert External Planned Provider: [facility] MEDICAID BED DCP follow-up note: CM CALLED [facility], , SPOKE TO PATRICIA WHO INFORMED CM THAT THEY HAVE ORDERED THE WOUND VAC AND IT SHOULD BE DELIVERED TOMORROW TO ACCEPT PT BACK TO FACILITY. FUR PLUCKER NURSE NOTIFED. CM WAITING ON [facility] TO OBTAIN WOUND VAC. WHEN [facility] VERIFIES THEY HAVE THE VAC AND WILL ACCEPT PT, NURSE REPORT TO BE CALLED TO [facility] AT [phone]. PT WILL TRANSPORT VIA AMBULANCE. PENELOPE Carmichael DCP- Discharge Planning Updated by [email or web address]: Landon Faye on 01/24/20 3:[address] Patient Name: BERNICE GUNN Encounter No: [id number] : 1965 Primary Insurance: MED[place]ID [place] Anticipated DC Date: 01-24-2020 Planned Disposition: Nursing Facility [facility] Cert External Planned Provider: [facility] MEDICAID BED DCP follow-up note: CM RECEIVED DISCHARGE ORDERS, CALLED [facility], , SPOKE TO ASPHALT PLANT OPERATOR TAMIKO. THE PERSON THAT CM SPOKE TO YESTERDAY IS NOT IN, THEY CANNOT LOCATE THE UPDATE FAXED BY CM YESTERDAY. [facility] IS NOT ABLE TO OBTAIN WOUND VAC TODAY AND IT WILL BE TOMORROW BEFORE VAC IS RECEIVED. CM FAXED UPDATE AND DISCHARGE INFORMATION TO [facility] AT [phone]. CM WAITING ON [facility] TO OBTAIN WOUND VAC. WHEN [facility] VERIFIES THEY HAVE THE VAC AND WILL ACCEPT PT, NURSE REPORT TO BE CALLED TO [facility] AT [phone]. PT WILL TRANSPORT VIA AMBULANCE. Landon Faye, CASE MANAGEMENT DCP- Discharge Planning Updated by [id number]: Joann Arora on 01/23/20 8:[address] Patient Name: BERNICE GUNN Admission Status: ER Accout number: [id number] Admission Date: 01-19-2020 : 1965 Admission Diagnosis: Attending: LEONA ZHU Current LOS: 4 Anticipated DC Date: Planned Disposition: Nursing Facility [facility] Primary Insurance: [place]ID [place] Discharge Planning Comments: [facility] a [facility] [phone] after a long hospitalization post AMI. CM called and spoke with Mila at [facility] and they are planning on patient returning there upon discharge. CM will fax updates to [facility] closer to discharge. CM will continue to follow and assist as needed with discharge planning / needs. Push Connector Assembler: Joann Arora DCPIA - Discharge Planning Initial Assessment Updated by [id number]: Joann Arora on 01/23/20 8:58 pm * Is the patient Alert and Oriented? Yes * PCP Jerome * Preadmission Environment Shelter Halfway * Facility Name [facility] * ADLs Partial Dependent * Partial ADLs (Assistance needed) Ambulation Bathing Dressing Eating Medication Management Toileting Transfers * List name and contact numbers for known caregivers / representatives who currently or will assist patient after discharge: MANUEL CORBIN - FATHER - [phone] * Verbal permission to speak to the caregivers and representatives has been obtained from the patient. N/A * Additional services required to return to the preadmission environment? No * Can the patient safely return to the preadmission environment? Yes * Has this patient been hospitalized within the prior 30 days at any hospital? No Last DP export: 01/24/20 3:58 p Patient Name: BERNICE GUNN Page 32629 at 1606 All edits/amendments must be made on the electronic document DICTATION DATE: 01/25/20 160 STRETCHING MACHINE TENDER FRAME: EMMA 01/25/20 160 RPT#: [id number] DC DATE: STATUS: ADM IN [facility] [address] [place] [address] END OF REPORT
[2020-01-25 18:08] VITALS: BP 127/73
[2020-01-25 20:00] VITALS: BP 109/70
--- NOTE | 2020-01-25 20:00 | NUR ---
PT IN BED, AAO X 3, RESP EVEN AND UNLABORED. NO DISTRESS NOTED, CL IN REACH, SR UP X 2.
[2020-01-26] VITALS: BP 116/77
[2020-01-26 04:00] VITALS: BP 122/65
[2020-01-26 07:02] LABS: BASOPHILS 0.2 % (0-2); EOSINOPHILS 12.4 % (0-7); HEMATOCRIT 32.1 % (36.0-48.0); HEMOGLOBIN 9.7 g/dL (12-16); IMMATURE GRANULOCYTES 0.1 % (0-5); LYMPHOCYTES 34.3 % (15-50); MCH 28.9 pg (26.0-34.0); MCHC 30.2 g/dL (31.0-37.0); MCV 95.5 fL (80.0-100.0); MEAN PLATELET VOLUME 10.1 fL (7.4-10.4); PLATELET COUNT 306 10x3/uL (130-400); RBC 3.36 10x6/uL (4.00-5.40); RDW 17.3 % (11.5-14.5); WBC 8.3 10x3/uL (4.8-10.8)
[2020-01-26 07:10] LABS: CALC OSMOLALITY 278 mosm/kg (275-300); CALCIUM 8.9 mg/dL (8.5-10.1); CARBON DIOXIDE 28.6 mmol/L (21.0-32.0); CHLORIDE - SERUM 104 mmol/L (98-107); CREATININE - SERUM 0.6 mg/dL (0.6-1.3); GLUCOSE 97 mg/dL (74-106); MAGNESIUM - SERUM 1.6 mg/dL (1.8-2.4); POTASSIUM - SERUM 3.9 mmol/L (3.5-5.1); SODIUM 140 mmol/L (136-145); UREA NITROGEN 12 mg/dL (7-18); eGFR NON AFRICAN AMERICAN > 90 mL/min (90-120)
[2020-01-26 09:08] VITALS: BP 135/83
--- NOTE | 2020-01-26 09:30 | NUR ---
PT VERY FRUSTRATED WITH CARE. SHE STATES SHE DIDNT GET ANY SLEEP LAST NIGHT BECAUSE ILLEOSTOMY WAS DRAINING SO MUCH. SKIN AROUND IS VERY EXCORIATED AND GOES AROUND TO BACK. PT IS HAVING TO HOLD A GLOVED HAND WITH A 4X4 ON SITE AT ALL TIMES. CLEANED SITE WITH STERILE WATER THIS IS THE ONLY THING SHE CAN TOLERATE ON SKIN. CALLED [facility] ABOUT [facility] AND SHE ADVISED ME TO CALL . WILL CTM
--- NOTE | 2020-01-26 10:10 | MORECARE ---
CASE MANAGEMENT DISCHARGE SUMMARY PATIENT: BERNICE GUNN UNIT: [id number] ADM DATE: 01/19/20 AGE: 55 : 67 SEX: F ROOM/BED: D.1834 AUTHOR: HAYES,DOC PHYSICIAN: REFERRING PHYSICIAN: LEONA ZHU MD DATE OF SERVICE: 01/26/20 Discharge Plan Patient Name: BERNICE GUNN Facility: [facility]:[place] : 1965 Planned Disposition: Nursing Facility [facility] Cert Anticipated Discharge Date: 01/24/20 Discharge Date: Expected LOS: 5 Initial Reviewer: [id number] Initial Review Date: 01/19/2020 Generated: 01/26/20 11:09 am Comments DCP- Discharge Planning Updated by [email or web address]: Landon Faye on 01/25/20 2:[address] Patient Name: BERNICE GUNN Encounter No: [id number] : 1965 Primary Insurance: [place]ID [place] Anticipated DC Date: 01-24-2020 Planned Disposition: Nursing Facility [facility] Cert External Planned Provider: [facility] MEDICAID BED DCP follow-up note: CM CALLED [facility], , SPOKE TO PATRICIA WHO INFORMED CM THAT THEY HAVE ORDERED THE WOUND VAC AND IT SHOULD BE DELIVERED TOMORROW TO ACCEPT PT BACK TO FACILITY. PAINTER MIRROR NURSE NOTIFED. CM WAITING ON [facility] TO OBTAIN WOUND VAC. WHEN [facility] VERIFIES THEY HAVE THE VAC AND WILL ACCEPT PT, NURSE REPORT TO BE CALLED TO [facility] AT [phone]. PT WILL TRANSPORT VIA AMBULANCE. Landon Faye CASE RUTH ANN DCP- Discharge Planning Updated by [email or web address]: Landon Faye on 01/24/20 3:[address] Patient Name: BERNICE GUNN Encounter No: [id number] : 1965 Primary Insurance: MEDICAID [place] Anticipated DC Date: 01-24-2020 Planned Disposition: Nursing Facility [facility] Cert External Planned Provider: [facility] MEDICAID BED DCP follow-up note: CM RECEIVED DISCHARGE ORDERS, CALLED [facility], , SPOKE TO MILLROOM SUPERVISOR TAMIKO. THE PERSON THAT CM SPOKE TO YESTERDAY IS NOT IN, THEY CANNOT LOCATE THE UPDATE FAXED BY CM YESTERDAY. [facility] IS NOT ABLE TO OBTAIN WOUND VAC TODAY AND IT WILL BE TOMORROW BEFORE VAC IS RECEIVED. CM FAXED UPDATE AND DISCHARGE INFORMATION TO [facility] AT [phone]. CM WAITING ON [facility] TO OBTAIN WOUND VAC. WHEN [facility] VERIFIES THEY HAVE THE VAC AND WILL ACCEPT PT, NURSE REPORT TO BE CALLED TO [facility] AT [phone]. PT WILL TRANSPORT VIA AMBULANCE. Landon Faye, CASE MANAGEMENT DCP- Discharge Planning Updated by [id number]: Joann Arora on 01/23/20 8:[address] Patient Name: BERNICE GUNN Admission Status: ER Accout number: [id number] Admission Date: 01-19-2020 : 1965 Admission Diagnosis: Attending: LEONA ZHU Current LOS: 4 Anticipated DC Date: Planned Disposition: Nursing Facility [facility] Primary Insurance: [place]ID [place] Discharge Planning Comments: [phone] after a long hospitalization post AMI. CM called and spoke with Mila at [facility] and they are planning on patient returning there upon discharge. CM will fax updates to [facility] closer to discharge. CM will continue to follow and assist as needed with discharge planning / needs. Marking Machine Tender: Joann Arora DCPIA - Discharge Planning Initial Assessment Updated by [id number]: Joann Arora on 01/23/20 8:58 pm * Is the patient Alert and Oriented? Yes * PCP Jerome * Preadmission Environment Weaving Teacher [facility] * [facility] * ADLs Partial Dependent * Partial ADLs (Assistance needed) Ambulation Bathing Dressing Eating Medication Management Toileting Transfers * List name and contact numbers for known caregivers / representatives who currently or will assist patient after discharge: MANUEL CORBIN - FATHER - [phone] * Verbal permission to speak to the caregivers and representatives has been obtained from the patient. N/A * Additional services required to return to the preadmission environment? No * Can the patient safely return to the preadmission environment? Yes * Has this patient been hospitalized within the prior 30 days at any hospital? No External Providers [facility] Next Contact Date: 01/26/2020 Service Request Date: Service Type: Resolution: Reviewer: Comments: Last DP export: 01/25/20 3:06 p Patient Name: BERNICE GUNN Page 46815 at 1010 All edits/amendments must be made on the electronic document DICTATION DATE: 01/26/201008 SHELLAC POLISHER: EMMA 01/26/20 100 RPT#: [id number] DC DATE: STATUS: ADM IN [facility] [address] [place] [address] END OF REPORT
--- NOTE | 2020-01-26 10:18 | MORECARE ---
CASE MANAGEMENT DISCHARGE SUMMARY PATIENT: BERNICE GUNN UNIT: [id number] ADM DATE: 01/19/20 AGE: 55 : 67 SEX: F ROOM/BED: D.7834 AUTHOR: HAYES,DOC PHYSICIAN: REFERRING PHYSICIAN: LEONA ZHU MD DATE OF SERVICE: 01/26/20 Discharge Plan Patient Name: BERNICE GUNN Facility: [facility]:[place] : 1965 Planned Disposition: Nursing Facility [facility] Cert Anticipated Discharge Date: 01/24/20 Discharge Date: Expected LOS: 5 Initial Reviewer: [id number] Initial Review Date: 01/19/2020 Generated: 01/26/20 11:18 am Comments DCP- Discharge Planning Updated by [email or web address]: Landon Faye on 01/26/20 9:[address] Patient Name: BERNICE GUNN Encounter No: [id number] : 1965 Primary Insurance: [place]ID [place] Anticipated DC Date: 01-24-2020 Planned Disposition: Nursing Facility [facility] Cert External Planned Provider: [facility] MEDICAID BED DCP follow-up note: CM RECEIVED TELEPHONE MESSAGE FROM TAMIKO LEWIS, ADMINSTRATOR OF [facility] REQUESTING CM FAX RESULTS OF THE "PARTICULAR TEST", THREE DAYS OF VITALS AND DISCHARGE INFORMATION TO [phone]. CM DID SO. CM CALLED [facility], , SPOKE TO PATRICIA WHO INFORMED CM THAT THE FINANCIAL EXAMINER WANTS TO TALK TO CM AND WILL CALL CM BACK SHORTLY. CM WAITING ON [facility] TO OBTAIN WOUND VAC. WHEN [facility] VERIFIES THEY HAVE THE VAC AND WILL ACCEPT PT, NURSE REPORT TO BE CALLED TO [facility] AT [phone]. PT WILL TRANSPORT VIA AMBULANCE. PENELOPE Carmichael DCP- Discharge Planning Updated by [id number]: Landon Faye on 01/25/20 2:[address] Patient Name: BERNICE GUNN Encounter No: [id number] : 1965 Primary Insurance: [place]ID [place] Anticipated DC Date: 01-24-2020 Planned Disposition: Nursing Facility [facility] Cert External Planned Provider: [facility] MEDICAID BED DCP follow-up note: CM CALLED [facility] [facility] [phone], SPOKE TO PATRICIA WHO INFORMED CM THAT THEY HAVE ORDERED THE WOUND VAC AND IT SHOULD BE DELIVERED TOMORROW TO ACCEPT PT BACK TO FACILITY. RADIO BOARD OPERATOR NURSE NOTIFED. CM WAITING ON [facility] TO OBTAIN WOUND VAC. WHEN [facility] VERIFIES THEY HAVE THE VAC AND WILL ACCEPT PT, NURSE REPORT TO BE CALLED TO [facility] AT [phone]. PT WILL TRANSPORT VIA AMBULANCE. PENELOPE Carmichael DCP- Discharge Planning Updated by [email or web address]: Landon Faye on 01/24/20 3:[address] Patient Name: BERNICE GUNN Encounter No: [id number] : 1965 Primary Insurance: [place] Anticipated DC Date: 01-24-2020 Planned Disposition: Nursing Facility [facility] Cert External Planned Provider: [facility] MEDICAID BED DCP follow-up note: CM RECEIVED DISCHARGE ORDERS, CALLED [place] [phone], SPOKE TO FINANCIAL EXAMINER TAMIKO. THE PERSON THAT CM SPOKE TO YESTERDAY IS NOT IN, THEY CANNOT LOCATE THE UPDATE FAXED BY YESTERDAY. [facility] IS NOT ABLE TO OBTAIN WOUND VAC TODAY AND IT WILL BE TOMORROW BEFORE VAC IS RECEIVED. CM FAXED UPDATE AND DISCHARGE INFORMATION TO [facility] AT [phone]. CM WAITING ON [facility] TO OBTAIN WOUND VAC. WHEN [facility] VERIFIES THEY HAVE THE VAC AND WILL ACCEPT PT, NURSE REPORT TO BE CALLED TO [facility] AT [phone]. PT WILL TRANSPORT VIA AMBULANCE. PENELOPE Carmichael DCP- Discharge Planning Updated by [id number]: Joann Arora on 01/23/20 8:[address] Patient Name: BERNICE GUNN Admission Status: ER Accout number: [id number] Admission Date: 01-19-2020 : 1965 Admission Diagnosis: Attending: LEONA ZHU Current LOS: 4 Anticipated DC Date: Planned Disposition: Nursing Facility [facility] Cert Primary Insurance: [place] Discharge Planning Comments: Patient is a current resident at [facility] [phone] after a long hospitalization post AMI. CM called and spoke with Mila at [facility] and they are planning on patient returning there upon discharge. CM will fax updates to [facility] closer to discharge. CM will continue to follow and assist as needed with discharge planning / needs. Dowel Inspector: Joann Arora DCPIA - Discharge Planning Initial Assessment Updated by [email or web address]: Joann Arora on 01/23/20 8:58 pm * Is the patient Alert and Oriented? Yes * PCP Jerome * Preadmission Environment Golf Instructor Fpc * Facility Name [facility] * ADLs Partial Dependent * Partial ADLs (Assistance needed) Ambulation Bathing Dressing Eating Medication Management Toileting Transfers * List name and contact numbers for known caregivers / representatives who currently or will assist patient after discharge: MANUEL CORBIN - FATHER - [phone] * Verbal permission to speak to the caregivers and representatives has been obtained from the patient. N/A * Additional services required to return to the preadmission environment? No * Can the patient safely return to the preadmission environment? Yes * Has this patient been hospitalized within the prior 30 days at any hospital? No Last DP export: 01/26/20 9:10 a Patient Name: BERNICE GUNN Page 46961 at 1018 All edits/amendments must be made on the electronic document DICTATION DATE: 01/26/20 1018 DYEING MACHINE FEEDER: EMMA 01/26/20 1018 RPT#: [id number] [place] DATE: STATUS: ADM IN [facility] [address] [place] [address] END OF REPORT
--- NOTE | 2020-01-26 13:05 | NUR ---
PAGED AND UPDATED HIM ON PT ILEOSTOMY AND EXCORIATION AROUND ILEOSTOMY. OFFERED TO PLACE A MALLINCOTT CATHETER. NOTIFIED THAT PT IS HAVING SOME THICK STOOLS. STATES THIS IS A CONTRAINDICATION FOR THE CATHETER. SPOKE WITH WOUND CARE NURSE FOR OPTIONS. ATTEMPTED TO TRY ZINC OXIDE AND XEROFORM. PT STATES IT BAH TOO MUCH. REMOVED THIS AND APPLIED XEROFORM ALONE. PT IS TRYING THIS. NOTIFIED FALGUNI COAT PADDER OF SITUATION
--- NOTE | 2020-01-26 13:12 | MORECARE ---
CASE MANAGEMENT DISCHARGE SUMMARY PATIENT: BERNICE GUNN UNIT: [id number] ADM DATE: 01/19/20 AGE: 55 : 67 SEX: F ROOM/BED: D.9124 AUTHOR: HAYES,DOC PHYSICIAN: REFERRING PHYSICIAN: LEONA ZHU MD DATE OF SERVICE: 01/26/20 Discharge Plan Patient Name: BERNICE GUNN Facility: [facility]:[place] : 1965 Planned Disposition: Nursing Facility [facility] Cert Anticipated Discharge Date: 01/26/20 Discharge Date: Expected LOS: 7 Initial Reviewer: [id number] Initial Review Date: 01/19/2020 Generated: 01/26/20 2:11 pm DCP- Discharge Planning Updated by [email or web address]: Landon Faye on 01/26/20 9:[address] Patient Name: BERNICE GUNN Encounter No: [id number] : 1965 Primary Insurance: [place]ID [place] Anticipated DC Date: 01-24-2020 Planned Disposition: Nursing Facility [facility] Cert External Planned Provider: [facility] MEDICAID BED DCP follow-up note: CM RECEIVED TELEPHONE MESSAGE FROM TAMIKO LEWIS, ADMINSTRATOR OF [facility] REQUESTING CM FAX RESULTS OF THE "PARTICULAR TEST", THREE DAYS OF VITALS AND DISCHARGE INFORMATION TO [phone]. CM DID SO. CM CALLED [facility], , SPOKE TO PATRICIA WHO INFORMED CM THAT THE VETERINARY TECHNICIAN INSTRUCTOR WANTS TO TALK TO CM AND WILL CALL CM BACK SHORTLY. CM WAITING ON [facility] TO OBTAIN WOUND VAC. WHEN [facility] VERIFIES THEY HAVE THE VAC AND WILL ACCEPT PT, NURSE REPORT TO BE CALLED TO [facility] AT [phone]. PT WILL TRANSPORT VIA AMBULANCE. PENELOPE Carmichael DCP- Discharge Planning Updated by [id number]: Landon Faye on 01/25/20 2:[address] Patient Name: BERNICE GUNN Encounter No: [id number] : 1965 Primary Insurance: [place]ID [place] Anticipated DC Date: 01-24-2020 Planned Disposition: Nursing Facility [facility] Cert External Planned Provider: [facility]M [facility] MEDICAID BED DCP follow-up note: CM CALLED [facility] [phone], SPOKE TO PATRICIA WHO INFORMED CM THAT THEY HAVE ORDERED THE WOUND VAC AND IT SHOULD BE DELIVERED TOMORROW TO ACCEPT PT BACK TO FACILITY. TIMBER MANAGEMENT ASSISTANT NURSE NOTIFED. CM WAITING ON [facility] TO OBTAIN WOUND VAC. WHEN [facility] VERIFIES THEY HAVE THE VAC AND WILL ACCEPT PT, NURSE REPORT TO BE CALLED TO [facility] AT [phone]. PT WILL TRANSPORT VIA AMBULANCE. PENELOPE Carmichael DCP- Discharge Planning Updated by [email or web address]: Landon Faye on 01/24/20 3:[address] Patient Name: BERNICE GUNN Encounter No: [id number] : 1965 Primary Insurance: [place] Anticipated DC Date: 01-24-2020 Planned Disposition: Nursing Facility [facility] Cert External Planned Provider: [facility]M [facility] MEDICAID BED DCP follow-up note: CM RECEIVED DISCHARGE ORDERS, CALLED [facility] [phone], SPOKE TO VETERINARY TECHNICIAN INSTRUCTOR TAMIKO. THE PERSON THAT CM SPOKE TO YESTERDAY IS NOT IN, THEY CANNOT LOCATE THE UPDATE FAXED BY YESTERDAY. [facility] IS NOT ABLE TO OBTAIN WOUND VAC TODAY AND IT WILL BE TOMORROW BEFORE VAC IS RECEIVED. CM FAXED UPDATE AND DISCHARGE INFORMATION TO [facility] AT [phone]. CM WAITING ON [facility] TO OBTAIN WOUND VAC. WHEN [facility] VERIFIES THEY HAVE THE VAC AND WILL ACCEPT PT, NURSE REPORT TO BE CALLED TO [facility] AT [phone]. PT WILL TRANSPORT VIA AMBULANCE. PENELOPE Carmichael DCP- Discharge Planning Updated by [email or web address]: Joann Arora on 01/23/20 8:[address] Patient Name: BERNICE GUNN Admission Status: ER Accout number: [id number] Admission Date: 01-19-2020 : 1965 Admission Diagnosis: Attending: LEONA ZHU Current LOS: 4 Anticipated DC Date: Planned Disposition: Nursing Facility [facility] Cert Primary Insurance: [place] Discharge Planning Comments: Patient is a current resident at [facility] [phone] after a long hospitalization post AMI. CM called and spoke with Mila at [facility] and they are planning on patient returning there upon discharge. CM will fax updates to [facility] closer to discharge. CM will continue to follow and assist as needed with discharge planning / needs. Landscape Gardener: Joann RODRIGUEZA - Discharge Planning Initial Assessment Updated by [email or web address]: Joann Arora on 01/23/20 8:58 pm * Is the patient Alert and Oriented? Yes * PCP Jerome * Preadmission Environment [facility] * Facility Name [facility] * ADLs Partial Dependent * Partial ADLs (Assistance needed) Ambulation Bathing Dressing Eating Medication Management Toileting Transfers * List name and contact numbers for known caregivers / representatives who currently or will assist patient after discharge: MANUEL CORBIN - FATHER - [phone] * Verbal permission to speak to the caregivers and representatives has been obtained from the patient. N/A * Additional services required to return to the preadmission environment? No * Can the patient safely return to the preadmission environment? Yes * Has this patient been hospitalized within the prior 30 days at any hospital? No Last DP export: 01/26/20 9:18 a Patient Name: BERNICE GUNN Page 78422 at 1312 All edits/amendments must be made on the electronic document DICTATION DATE: 01/26/201310 AUXILIARY OPERATOR: EMMA 01/26/20 1311 RPT#: [id number] IN DATE: STATUS: ADM IN [facility] [address] [place] [address] END OF REPORT
--- NOTE | 2020-01-26 13:19 | MORECARE ---
CASE MANAGEMENT DISCHARGE SUMMARY PATIENT: BERNICE GUNN UNIT: [id number] ADM DATE: 01/19/20 AGE: 55 : 67 SEX: F ROOM/BED: D.0431 AUTHOR: HAYES,DOC PHYSICIAN: REFERRING PHYSICIAN: LEONA ZHU MD DATE OF SERVICE: 01/26/20 Discharge Plan Patient Name: BERNICE GUNN Facility: [facility]:[place] : 1965 Planned Disposition: Nursing Facility [facility] Cert Anticipated Discharge Date: 01/26/20 Discharge Date: Expected LOS: 7 Initial Reviewer: [id number] Initial Review Date: 01/19/2020 Generated: 01/26/20 2:18 pm Comments DCP- Discharge Planning Updated by [id number]: Landon Faye on 01/26/20 12:[address] Patient Name: BERNICE GUNN Encounter No: [id number] : 1965 Primary Insurance: MEDICAID [place] Anticipated DC Date: 01-26-2020 Planned Disposition: Nursing Facility [facility] Cert External Planned Provider: [facility] MEDICAID BED DCP follow-up note: [facility] MEDICAID BED DCP follow-up note: CM SPOKE TO TAMIKO LEWIS, ADMINSTRATOR OF [facility] REQUESTING WHO INFORMED CM THAT THEY CANNOT ACCEPT PT UNTIL COVID19 TESTING HAS BEEN RECEIVED PER THEIR CORPORATE POLICY. CM NOTIFED CM CANDY PACKER JEYSON SANDERS. CM RECEIVED CALL FROM [facility], , THEY HAVE DISCUSSED SITUATION, PT WAS ON ISOLATION PRIOR TO HOSPITAL ADMISSION AND WILL RETURN TO ISOLOLATION AFTER HOSPITAL DISCHARGE. THEY CAN ACCEPT PT TODAY PT HAS BEEN ASYMPTOMATIC FOR COVID19. [facility] WILL SEND VAN TO BILINGUAL MIDDLE SCHOOL TEACHER PT. CM NOTIFIED JEYSON SANDERS, CANDY PACKER, GARNETT FEEDER NURSE AND BEDSIDE NURSE. BEDSIDE NURSE ADVISED THEY ARE WAITING ON DR. NORTH TO EVALUATE PT. CM CALLED AND CANCELLED [facility] TRANSPORT. NURSE REPORT TO BE CALLED TO [facility] AT [phone], REQUEST VAN TRANSPORTATION. Landon Faye, CASE MANAGEMENT DCP- Discharge Planning Updated by [id number]: Landon Faye on 01/26/20 9:[address] Patient Name: BERNICE GUNN Encounter No: [id number] : 1965 Primary Insurance: MEDICAID [place] Anticipated DC Date: 01-24-2020 Planned Disposition: Nursing Facility [facility] Cert External Planned Provider: [facility] MEDICAID BED DCP follow-up note: CM RECEIVED TELEPHONE MESSAGE FROM TAMIKO LEWIS, ADMINSTRATOR OF [facility] REQUESTING CM FAX RESULTS OF THE "PARTICULAR TEST", THREE DAYS OF VITALS AND DISCHARGE INFORMATION TO [phone]. CM DID SO. CM CALLED [facility], , SPOKE TO PATRICIA WHO INFORMED CM THAT THE FUR COMBER WANTS TO TALK TO CM AND WILL CALL CM BACK SHORTLY. CM WAITING ON [facility] TO OBTAIN WOUND VAC. WHEN [facility] VERIFIES THEY HAVE THE VAC AND WILL ACCEPT PT, NURSE REPORT TO BE CALLED TO [facility] AT [phone]. PT WILL TRANSPORT VIA AMBULANCE. Landon Faye, CASE MANAGEMENT DCP- Discharge Planning Updated by [id number]: Landon Faye on 01/25/20 2:[address] Patient Name: BERNICE GUNN Encounter No: [id number] : 1965 Primary Insurance: MEDICAID [place] Anticipated DC Date: 01-24-2020 Planned Disposition: Nursing Facility [facility] Cert External Planned Provider: [facility] MEDICAID BED DCP follow-up note: CM CALLED [facility], , SPOKE TO PATRICIA WHO INFORMED CM THAT THEY HAVE ORDERED THE WOUND VAC AND IT SHOULD BE DELIVERED TOMORROW TO ACCEPT PT BACK TO FACILITY. GARNETT FEEDER NURSE NOTIFED. CM WAITING ON [facility] TO OBTAIN WOUND VAC. WHEN [facility] VERIFIES THEY HAVE THE VAC AND WILL ACCEPT PT, NURSE REPORT TO BE CALLED TO [facility] AT [phone]. PT WILL TRANSPORT VIA AMBULANCE. Landon Faye, CASE MANAGEMENT DCP- Discharge Planning Updated by [id number]: Landon Faye on 01/24/20 3:[address] Patient Name: BERNICE GUNN Encounter No: [id number] : 1965 Primary Insurance: MEDICAID [place] Anticipated DC Date: 01-24-2020 Planned Disposition: Nursing Facility [facility] Cert External Planned Provider: [facility] MEDICAID BED DCP follow-up note: CM RECEIVED DISCHARGE ORDERS, CALLED [facility], , SPOKE TO FUR COMBER TAMIKO. THE PERSON THAT CM SPOKE TO YESTERDAY IS NOT IN, THEY CANNOT LOCATE THE UPDATE FAXED BY CM YESTERDAY. [facility] IS NOT ABLE TO OBTAIN WOUND VAC TODAY AND IT WILL BE TOMORROW BEFORE VAC IS RECEIVED. CM FAXED UPDATE AND DISCHARGE INFORMATION TO [facility] AT [phone]. CM WAITING ON [facility] TO OBTAIN WOUND VAC. WHEN [facility] VERIFIES THEY HAVE THE VAC AND WILL ACCEPT PT, NURSE REPORT TO BE CALLED TO [facility] AT [phone]. PT WILL TRANSPORT VIA AMBULANCE. Landon Faye, CASE MANAGEMENT DCP- Discharge Planning Updated by [id number]: Joann Arora on 01/23/20 8:[address] Patient Name: BERNICE GUNN Admission Status: ER Accout number: [id number] Admission Date: 01-19-2020 : 1965 Admission Diagnosis: Attending: LEONA ZHU Current LOS: 4 Anticipated DC Date: Planned Disposition: Nursing Facility [facility] Primary Insurance: MEDICAID [place] Discharge Planning Comments: [phone] after a long hospitalization post AMI. CM called and spoke with Mila at [facility] and they are planning on patient returning there upon discharge. CM will fax updates to [facility] closer to discharge. CM will continue to follow and assist as needed with discharge planning / needs. Flat Machine Cutter: Joann Arora DCPIA - Discharge Planning Initial Assessment Updated by [email or web address]: Joann Arora on 01/23/20 8:58 pm * Is the patient Alert and Oriented? Yes * PCP Jerome * Preadmission Environment [facility] * Facility Name [facility] * ADLs Partial Dependent * Partial ADLs (Assistance needed) Ambulation Bathing Dressing Eating Medication Management Toileting Transfers * List name and contact numbers for known caregivers / representatives who currently or will assist patient after discharge: MANUEL CORBIN - FATHER - [phone] * Verbal permission to speak to the caregivers and representatives has been obtained from the patient. N/A * Additional services required to return to the preadmission environment? No * Can the patient safely return to the preadmission environment? Yes * Has this patient been hospitalized within the prior 30 days at any hospital? No Last DP export: 01/26/20 12:11 p Patient Name: BERNICE GUNN Page 98832 at 1319 All edits/amendments must be made on the electronic document DICTATION DATE: 01/26/201317 HOTEL HOUSEKEEPER: EMMA 01/26/201317 RPT#: [id number] DC DATE: STATUS: ADM IN [facility] [address] [place] [address] END OF REPORT
--- NOTE | 2020-01-26 14:27 | NUR ---
REPORT CALLED TO [facility]. PT WILL LEAVE WITH A DURANT IN PLACE FOR THEM TO BLADDER TRAIN HER PROPERLY.
--- NOTE | 2020-01-26 14:58 | NUR ---
[facility] HERE TO TAKE PT BACK TO [facility]. WOUND VAC DISCONNECTED AND PUT IN SOILED LIEN CLOSET. PT DC WITH CARLEEN. ALL VALUBLES PACKED UP AND TAKEN BY PT.
--- NOTE | 2020-01-28 16:00 | MORECARE ---
CASE MANAGEMENT DISCHARGE SUMMARY PATIENT: BERNICE GUNN UNIT: [id number] ADM DATE: 01/19/20 AGE: 55 : 67 SEX: F ROOM/BED: D.3372 AUTHOR: HAYES,DOC PHYSICIAN: REFERRING PHYSICIAN: LEONA ZHU MD DATE OF SERVICE: 01/28/20 Discharge Plan Patient Name: BERNICE GUNN Facility: [facility]:[place] : 1965 Planned Disposition: Nursing Facility [facility] Cert Anticipated Discharge Date: 01/26/20 Discharge Date: 01/26/2020 Expected LOS: 7 Initial Reviewer: [id number] Initial Review Date: 01/19/2020 Generated: 01/28/20 5:00 pm Comments DCP- Discharge Planning Updated by [id number]: Landon Faye on 01/26/20 12:[address] Patient Name: BERNICE GUNN Encounter No: [id number] : 1965 Primary Insurance: [place]ID [place] Anticipated DC Date: 01-26-2020 Planned Disposition: Nursing Facility [facility] Cert External Planned Provider: [facility] MEDICAID BED DCP follow-up note: [facility] MEDICAID BED DCP follow-up note: CM SPOKE TO TAMIKO LEWIS, ADMINSTRATOR OF [facility] REQUESTING WHO INFORMED CM THAT THEY CANNOT ACCEPT PT UNTIL COVID19 TESTING HAS BEEN RECEIVED PER THEIR CORPORATE POLICY. CM NOTIFED CM PHYSICAL FITNESS TRAINER JEYSON SANDERS. CM RECEIVED CALL FROM [facility], , THEY HAVE DISCUSSED SITUATION, PT WAS ON ISOLATION PRIOR TO HOSPITAL ADMISSION AND WILL RETURN TO ISOLOLATION AFTER HOSPITAL DISCHARGE. THEY CAN ACCEPT PT TODAY PT HAS BEEN ASYMPTOMATIC FOR COVID19. [facility] WILL SEND VAN TO BASIC SCIENCES PROFESSOR PT. CM NOTIFIED JEYSON SANDERS, PHYSICAL FITNESS TRAINER, CLINIC ADMINISTRATOR NURSE AND BEDSIDE NURSE. BEDSIDE NURSE ADVISED THEY ARE WAITING ON DR. NORTH TO EVALUATE PT. CM CALLED AND CANCELLED [facility] TRANSPORT. NURSE REPORT TO BE CALLED TO [facility] AT [phone], REQUEST VAN TRANSPORTATION. Landon Faye, CASE MANAGEMENT DCP- Discharge Planning Updated by [email or web address]: Landon Faye on 01/26/20 9:[address] Patient Name: BERNICE GUNN Encounter No: [id number] : 1965 Primary Insurance: [place]ID [place] Anticipated DC Date: 01-24-2020 Planned Disposition: Nursing Facility [facility] Cert External Planned [facility] DCP follow-up note: CM RECEIVED TELEPHONE MESSAGE FROM TAMIKO LEWIS, ADMINSTRATOR OF [facility] REQUESTING CM FAX RESULTS OF THE "PARTICULAR TEST", THREE DAYS OF VITALS AND DISCHARGE INFORMATION TO [phone]. CM DID SO. CM CALLED [facility], , SPOKE TO PATRICIA WHO INFORMED CM THAT THE TELEGRAPH REPEATER MECHANIC WANTS TO TALK TO CM AND WILL CALL CM BACK SHORTLY. CM WAITING ON [facility] TO OBTAIN WOUND VAC. WHEN [facility] VERIFIES THEY HAVE THE VAC AND WILL ACCEPT PT, NURSE REPORT TO BE CALLED TO [facility] AT [phone]. PT WILL TRANSPORT VIA AMBULANCE. Landon Faye, CASE MANAGEMENT DCP- Discharge Planning Updated by [email or web address]: Landon Faye on 01/25/20 2:[address] Patient Name: BERNICE GUNN Encounter No: [id number] : 1965 Primary Insurance: [place]ID [place] Anticipated DC Date: 01-24-2020 Planned Disposition: Nursing Facility [facility] Cert External Planned Provider: [facility] MEDICAID BED DCP follow-up note: CM CALLED [facility], , SPOKE TO PATRICIA WHO INFORMED CM THAT THEY HAVE ORDERED THE WOUND VAC AND IT SHOULD BE DELIVERED TOMORROW TO ACCEPT PT BACK TO FACILITY. CLINIC ADMINISTRATOR NURSE NOTIFED. CM WAITING ON [facility] TO OBTAIN WOUND VAC. WHEN [facility] VERIFIES THEY HAVE THE VAC AND WILL ACCEPT PT, NURSE REPORT TO BE CALLED TO [facility] AT [phone]. PT WILL TRANSPORT VIA AMBULANCE. Landon Faye CASE MANAGEMENT DCP- Discharge Planning Updated by [id number]: Landon Faye on 01/24/20 3:[address] Patient Name: BERNICE GUNN Encounter No: [id number] : 1965 Primary Insurance: [place] Anticipated DC Date: 01-24-2020 Planned Disposition: Nursing Facility [facility] Cert External Planned Provider: [facility] MEDICAID BED DCP follow-up note: CM RECEIVED DISCHARGE ORDERS, CALLED [facility], , SPOKE TO TELEGRAPH REPEATER MECHANIC TAMIKO. THE PERSON THAT CM SPOKE TO YESTERDAY IS NOT IN, THEY CANNOT LOCATE THE UPDATE FAXED BY CM YESTERDAY. [facility] IS NOT ABLE TO OBTAIN WOUND VAC TODAY AND IT WILL BE TOMORROW BEFORE VAC IS RECEIVED. CM FAXED UPDATE AND DISCHARGE INFORMATION TO [facility] AT [phone]. CM WAITING ON [facility] TO OBTAIN WOUND VAC. WHEN [facility] VERIFIES THEY HAVE THE VAC AND WILL ACCEPT PT, NURSE REPORT TO BE CALLED TO [facility] AT [phone]. PT WILL TRANSPORT VIA AMBULANCE. Landon Faye, PENELOPE MANAGEMENT DCP- Discharge Planning Updated by [email or web address]: Joann Arora on 01/23/20 8:[address] Patient Name: BERNICE GUNN Admission Status: ER Accout number: [id number] Admission Date: 01-19-2020 : 1965 Admission Diagnosis: Attending: LEONA ZHU Current LOS: 4 Anticipated DC Date: Planned Disposition: Nursing Facility [facility] Cert Primary Insurance: [place]ID [place] Discharge Planning Comments: Patient [facility] a [phone] after a long hospitalization post AMI. CM called and spoke with Mila at [facility] and they are planning on patient returning there upon discharge. CM will fax updates to [facility] closer to discharge. CM will continue to follow and assist as needed with discharge planning / needs. Ladle Repairman: Joann Arora DCPIA - Discharge Planning Initial Assessment Updated by [email or web address]: Joann Arora on 01/23/20 8:58 pm * Is the patient Alert and Oriented? Yes * PCP Jerome * Preadmission Environment Assisted Shelter * Facility Name [facility] * ADLs Partial Dependent * Partial ADLs (Assistance needed) Ambulation Bathing Dressing Eating Medication Management Toileting Transfers * List name and contact numbers for known caregivers / representatives who currently or will assist patient after discharge: MANUEL CORBIN - FATHER - [phone] * Verbal permission to speak to the caregivers and representatives has been obtained from the patient. N/A * Additional services required to return to the preadmission environment? No * Can the patient safely return to the preadmission environment? Yes * Has this patient been hospitalized within the prior 30 days at any hospital? No Last DP export: 01/26/20 12:19 p Patient Name: BERNICE GUNN Page [id number] at 1600 All edits/amendments must be made on the electronic document DICTATION DATE: 01/28/20 1600 DERMATOLOGIST: EMMA 01/28/20 1600 RPT#: [id number] DC DATE:01/26/20 STATUS: DIS IN [facility] [address] [place] [address] END OF REPORT
== END 2020-01-26 15:00 | DRG 393 ==
LOC: D.ER 12:24 → D.M2 15:52 → D.ICU 15:52 → D.M2 01-23 19:53
PROVIDERS: Emergency Medicine; Family Medicine; ADMIT Internal Medicine Nephrology; ATTEND Internal Medicine Nephrology
DX: K94.03 Colostomy malfunction (principal); L89.153 Pressure ulcer of sacral region, stage 3; J98.51 Mediastinitis; E87.1 Hypo-osmolality and hyponatremia; N39.0 Urinary tract infection, site not specified; D64.9 Anemia, unspecified; I10 Essential (primary) hypertension; E78.5 Hyperlipidemia, unspecified; I73.9 Peripheral vascular disease, unspecified; J44.9 Chronic obstructive pulmonary disease, unspecified; G47.33 Obstructive sleep apnea (adult) (pediatric); E11.9 Type 2 diabetes mellitus without complications; Z20.828 Contact with and (suspected) exposure to other viral communicable diseases; K21.9 Gastro-esophageal reflux disease without esophagitis; M06.9 Rheumatoid arthritis, unspecified; M50.30 Other cervical disc degeneration, unspecified cervical region; G89.29 Other chronic pain; M79.7 Fibromyalgia; M19.90 Unspecified osteoarthritis, unspecified site

== ENCOUNTER 2021-02-04 15:06 | Emergency (ER) | payer OTHER ==
[~2021-02-04] VITALS: Ht 154.9 cm; Wt 64.5 kg
[~2021-02-04 15:06] MED LIST changes: +ACEROLA C500 MG; +ACEROLA C500 MG PO; +ACIDOPHILUS-PE1 EACH PO; +ASPIRIN81 MG PO; +BENTYL10 MG PO; +FLORINEF 0.1 M0.1 MG PO; +METAMUCIL PACKE1 PKT PO; +MULTI-DAY VITAM1 TAB PO; +NOVOLOG100 UNIT/1 SC; +PERCOCET 7.5/321 TAB PO; +PHENAZOPYRIDIN100 MG PO; +PROTONIX40 MG PO; +SMZ-TMP DS 800-1 TAB PO; +ULTRAM50 MG PO; +VALIUM5 MG PO; +ZINC-220220 MG PO; +ZOFRAN4 MG PO
[2021-02-04 15:14] VITALS: Ht 154.9 cm; Wt 64.5 kg
[2021-02-04 17:16] VITALS: BP 122/71
== END 2021-02-04 17:28 | disposition home or self-care (01) ==
LOC: D.ER 15:06
DX: M25.572 Pain in left ankle and joints of left foot (principal); S82.892A Other fracture of left lower leg, initial encounter for closed fracture; K21.9 Gastro-esophageal reflux disease without esophagitis; E11.9 Type 2 diabetes mellitus without complications; I10 Essential (primary) hypertension; J44.9 Chronic obstructive pulmonary disease, unspecified; Z72.0 Tobacco use; Z79.4 Long term (current) use of insulin; X50.1XXA Overexertion from prolonged static or awkward postures, initial encounter; Y93.9 Activity, unspecified; Y92.9 Unspecified place or not applicable

== ENCOUNTER 2021-02-17 14:24 | Outpatient (CLI) | payer OTHER ==
[2021-02-04 15:14] VITALS: BMI 26.9
== END 2021-02-17 23:59 | disposition home or self-care (01) ==
LOC: D.MAMMO 14:24
PROVIDERS: ATTEND Family Medicine
DX: Z12.31 Encounter for screening mammogram for malignant neoplasm of breast (principal)

== ENCOUNTER → 2021-02-18 10:16 | Outpatient (CLI) | payer OTHER ==
[2021-02-04 15:14] VITALS: BMI 26.9
== END | disposition home or self-care (01) ==
LOC: D.CT 10:16
PROVIDERS: ATTEND Nurse Practitioner Family
DX: S82.225A Nondisplaced transverse fracture of shaft of left tibia, initial encounter for closed fracture (principal)

== ENCOUNTER 2021-02-20 15:30 | Outpatient (CLI) | payer OTHER ==
[2021-02-04 15:14] VITALS: BMI 26.9
== END 2021-02-20 23:59 | disposition home or self-care (01) ==
LOC: D.MAMMO 15:30
PROVIDERS: ATTEND Family Medicine
DX: N63.23 Unspecified lump in the left breast, lower outer quadrant (principal)